=== PATIENT | female | born 1985 | race Asian ===

== ENCOUNTER → 2017-07-20 | Outpatient (CLI) | payer BC | END | disposition home or self-care (01) | LOC: C.LABSPEC 11:32 | PROVIDERS: ATTEND Obstetrics & Gynecology | DX: Z34.91 Encounter for supervision of normal pregnancy, unspecified, first trimester (principal); Z3A.00 Weeks of gestation of pregnancy not specified ==

== ENCOUNTER → 2017-07-26 | Outpatient (CLI) | payer BC ==
[2017-07-26 10:09] LABS: BASO % 0.5 %; BASO ABS # 0.03 K/uL (0-0.2); EOS ABS # 0.06 K/uL (0-0.5); HEMATOCRIT 36.3 % (37-47); HEMOGLOBIN 11.6 g/dL (12.0-16.0); IG# 0.01 K/uL (0.00-0.02); LYMPH % 18.2 %; LYMPH ABS # 1.12 K/uL (1.2-3.4); MEAN CELL VOLUME 70.1 fL (80-100); MEAN CORPUSCULAR HEMOGLOBIN 22.4 pg (25-34); MONO ABS # 0.31 K/uL (0.11-0.59); NEUT % 75.1 %; NEUT ABS # 4.62 K/uL (1.4-6.5); PLATELET COUNT 175 K/uL (130-400); RED CELL DISTRIBUTION WIDTH CV 15.6 % (11.5-14.5); RED CELL DISTRIBUTION WIDTH SD 39.5 fL (36.4-46.3); WHITE BLOOD COUNT 6.15 K/uL (4.8-10.8)
== END | disposition home or self-care (01) ==
LOC: C.LAB1850 09:23
PROVIDERS: ATTEND Obstetrics & Gynecology
DX: Z34.91 Encounter for supervision of normal pregnancy, unspecified, first trimester (principal); Z3A.00 Weeks of gestation of pregnancy not specified

== ENCOUNTER → 2017-09-06 | Outpatient (CLI) | payer BC | END | disposition home or self-care (01) | LOC: C.LAB1850 16:44 | PROVIDERS: ATTEND Obstetrics & Gynecology | DX: Z34.02 Encounter for supervision of normal first pregnancy, second trimester (principal); Z3A.00 Weeks of gestation of pregnancy not specified ==

== ENCOUNTER → 2017-09-23 | Outpatient (CLI) | payer BC | END | disposition home or self-care (01) | LOC: C.LAB1850 08:20 | PROVIDERS: ATTEND Obstetrics & Gynecology | DX: O28.1 Abnormal biochemical finding on antenatal screening of mother (principal) ==

== ENCOUNTER 2021-08-24 03:58 | Inpatient (IN) ==
[2021-08-24] MEDS ORDERED: OXYTOCIN 30 UNITS/500 ML BAG IV PRN ×2 (04:10→05:12)
[2021-08-24] MEDS ORDERED: LACTATED RINGER'S 1,000 ML IV PRN (04:10)
[2021-08-24] MEDS ORDERED: PENICILLIN G POTASSIUM 6 MU in DEXTROSE 5% 250 ML IV STA (04:10)
--- NOTE | 2021-08-24 04:16 | History & Physical Report ---
Date of Service August 24, 2021 Assessment & Plan (1) : Plan: 35 y/o at 37 5/7 wga in labor VSS Fetus cat 1 Labor - progressing spontanoeusly GBS+, will attempt antibiotics but not likely to be adequate History of Present Illness Chief Complaint: contractions Primary Care Provider: NO PCP 35 y/o at 37 5/7 wga presenting w/ contractions increasing in frequency and intensity. +FM; denies LOF, VB PNI: Prior child w/ thalaseemia, fob negative ASCUS/HPV- Past [employer] Hx: G1 eAB G2 2018 at 41 wks q29d cycles ascus/hpv- pap denies hx stis Allergies Allergy/AdvReac Type Severity Reaction Status Date / Time No Known Allergies Allergy Verified 08/18/21 16:06 Home Medications Medication Instructions Recorded Confirmed Type prenat.vits,alexandre,por-ylsv-haqun 1 tab PO DAILY 03/01/18 08/18/21 History ( Vitamin) breast pump #1 ea 08/04/21 08/18/21 Rx Patient History Surgical History (Updated 01/23/21 @ 15:23 by Camilla Kaiser) Inguinal hernia S/P dilation and curettage Social History Smoking Status: Never smoker Hx Alcohol Use: No Hx Substance Use: No Preferred Language: Armenian Communication Ability: Effective Awning Maker And Installer Required: No Beliefs That Will Affect Care: None marital status: Current Living Situation: Spouse Feels Safe at Home: Yes Assistive Devices: None Physical Exam Genitourinary: OB Exam Monitor Tracing: + external FHT monitor used, + external uterine monitor used (q3-4) and + category I (135/mod/+accel/-decel) SVE 9cm by nursing Results & Data ([facility]) Vital Signs (Past 12 Hours) Vital Signs Pulse BP 08/24/21 04:07 92 H 120/74 Laboratory Results OB Labs: Blood Type B Positive 01/28/21 Antibody Screen NEGATIVE 01/28/21 Hemoglobin 11.2 g/dL (12.0-16.0) L 06/18/21 Hematocrit 36.2 % (37-47) L 06/18/21 Mean Corpuscular Volume 70.1 fL (80-100) L 01/28/21 Platelet Count 231 K/uL (130-400) 01/28/21 Rubella IgG Antibody Immune (Immune) 01/28/21 Rapid Plasma Reagin Nonreactive (Nonreactive) 01/28/21 Hepatitis B Surface Antigen Neg (Neg) 01/28/21 HIV (1&2) Ab and P24 Ag, 4th Gener Neg (Neg) 01/28/21 Glucose 1 Hour 50 gm Load 143 mg/dl (70-130) H 06/18/21 OB Optional Labs: Chlamydia trachomatis RNA NOT DETECTED (NOT DETECTED) 01/28/21 Neisseria gonorrhoeae RNA NOT DETECTED (NOT DETECTED) 01/28/21 Labs Reviewed: cfDNA low risk--smp GBS+ Coding Level of Care Code None Diagnoses Z34.90
[2021-08-24] MEDS ORDERED: BUPIVACAINE 0.25% 30 ML VIAL ONE (04:40)
[2021-08-24] MEDS ORDERED: SODIUM CHLORIDE 0.9% INJ 10 ML VIAL ONE (04:40)
[2021-08-24] MEDS ORDERED: ePHEDrine sulfate 50 MG/ML AMP ONE (04:40)
[2021-08-24] MEDS ORDERED: fentaNYL citrate 100 MCG/2 ML VIAL ONE (04:40)
[2021-08-24] MEDS ORDERED: fentaNYL 2MCG/ML ROPIVACAINE 1.25MG/ML 100 ML BAG EPI ONE (04:41)
[2021-08-24 04:50] LABS: Mean Corpuscular Hgb Conc 32.4 g/dL (32-36)
[2021-08-24 04:58] LABS: Hematocrit (blood only) 37.6 % (37-47); Hemoglobin 12.2 g/dL (12.0-16.0); Mean Corpuscular Volume 70.8 fL (80-100); RDW Coefficient of Variation 13.9 % (11.5-14.5); RDW Standard Deviation 35.6 fL (36.4-46.3); Red Blood Count 5.31 M/uL (4.2-5.4); White Blood Count 11.15 K/uL (4.8-10.8)
[2021-08-24 05:08] LABS: Platelet Count 129 K/uL (130-400); Platelet Estimate Decreased (Normal)
[2021-08-24] MEDS ORDERED: IBUPROFEN 600 MG TAB PO PRN (05:12)
[2021-08-24] MEDS ORDERED: ACETAMINOPHEN 325 MG TAB PO PRN (05:12)
[2021-08-24] MEDS ORDERED: BENZOCAINE 20% AER SPR 82.5 GM CAN EXT PRN (05:12)
[2021-08-24] MEDS ORDERED: DIPHTHERIA/TETANUS/PERTUSSIS 0.5 ML SYR/VIAL IM ONE (05:12)
[2021-08-24] MEDS ORDERED: HYDROCORTISONE ACETATE 25 MG SUPP PR PRN (05:12)
--- NOTE | 2021-08-24 05:18 | Delivery Summary ---
Vaginal Delivery Summary Date of Service August 24, 2021 Vaginal Delivery Summary [facility] PREOPERATIVE DIAGNOSIS: 1. Single intrauterine at 37 5/7 weeks gestation 2. Labor 3. GBS+ POSTOPERATIVE DIAGNOSIS: 1. Single intrauterine at 37 5/7 weeks gestation 2. Labor 3. GBS+ 4. Delivered PROCEDURE: 1. Normal spontaneous vaginal delivery. SURGEON: Cara Johnson MD ANESTHESIA: None ESTIMATED BLOOD LOSS: 300 mL FLUIDS: Continuous LR. URINE OUTPUT: None. COMPLICATIONS: None. CONDITION: Stable. INDICATIONS: 35 y/o at 37 5/7 wga presented with contractions increasing in frequency and intensity. She called in 4-5 hours before delivery with contractions q7-10 minutes. She was able to rest but then contractions worsened and presented for evaluation when she was found to be 8cm. She was very uncomfortable and so underwent artificial rupture of membranes. She then quickly progressed to complete and desired to push. FINDINGS: A viable male infant, weight pending with Apgars of 8 and 9 at 1 and 5 minutes respectively. SPECIMEN: Cord blood OPERATIVE REPORT: The patient progressed to 10 cm, 100% effaced and +2 station, pushed over intact perineum with anesthesia to deliver a viable male , weight and Apgars as above. Head of delivered in NATA position. No nuchal cord was present. Body and shoulders were delivered without difficulty. was delivered to maternal abdomen and nursing staff. Delayed cord clamping was performed for 60 seconds. Cord was clamped and cut. Cord blood was obtained. Placenta delivered spontaneously intact with 3-vessel cord. IV oxytocin and fundal massage were given however there was still atony and bimanual massage was given for excellent hemostasis. Vagina, cervix, perineum, and placenta were inspected. A hemostatic L vaginal abrasion was noted at the introitus but not needed to be repaired. Sponge and needle counts correct x2. No sponges were left behind. Mother and stable in immediate period. [facility] Vaginal Delivery Charge Vaginal Delivery Codes: 68144 global code for the antepartum, delivery, and post- Delivery Type Details: [facility]
[2021-08-24] MEDS ORDERED: PENICILLIN G POTASSIUM 3 MU in DEXTROSE 5% 100 ML IV PRN (07:10)
[2021-08-24] MEDS: DOCUSATE SODIUM 100 MG CAP PO SCH ×2 (08:19→20:30)
[2021-08-24] MEDS: PRENATAL VITAMIN 1 TAB PO SCH (08:19)
--- NOTE | 2021-08-25 06:34 | Obstetrical Progress Note ---
Date of Service August 25, 2021 Assessment & Plan (1) Encounter for care and examination after delivery: Plan: 35 yo PPD1 s/p at 37 5/7 weeks. -Continue routine care -Vitals reviewed- HDS, afebrile -B+ blood, GBS+& treated, Rubella immune -Encourage ambulation, regular diet -Pain control with ibuprofen, acetaminophen PRN -Encourage -D/c today with F/u in 6 weeks withOB Admission and Anticipated Discharge Date Admission Date: August 24, 2021 Supervising Physician Co-Signing Physician Notes Resident Physician Supervision Note: I was present with [Name of resident] during the history and exam. I discussed the case with the resident and agree with the findings and plan as documented in the note. Any exceptions or clarifications are listed here: [None] Documented By: Sam Garcia MD, FACOG Subjective 35 yo PPD1 s/p at 37 5/7 weeks. Pt doing well. Has some pain today that improves with tylenol and ibuprofen. Ambulating around the room and voiding without issue. Pt is eating and drinking w/o n/v. Baby is and latching, but mother has concern for tongue tie that she would like to discuss with medical researcher. Pt feels comfortable with being D/c'd today. Discussed routine care and what to expect in next few weeks. Otherwise pt has no other complaints at this time. Review of Systems Review of Systems: All systems reviewed & are unremarkable except as noted in HPI & below Physical Exam Physical Exam: General: Alert, oriented, no acute distress Cardiac: Regular rate and rhythm, normal S1, S2. No murmurs appreciated. Respiratory: Clear to auscultation b/l with good air flow entry, symmetric chest rise and fall. No wheezes or crackles. No increased work of breathing or accessory muscle use Abdomen: Soft, nontender, nondistended. Fundus firm and palpable at 2 cm below umbilicus. No guarding or rebound. Skin: No rashes or lesions Extremities: Warm, dry, well-perfused with capillary refill <2s b/l. No lower extremity edema, erythema or swelling. Negative Stewart's sign b/l. Results & Data ([facility]) Vital Signs (Past 12 Hours) Vital Signs Temp Pulse Resp BP Pulse Ox 08/25/21 04:14 36.8 C 84 20 104/60 08/25/21 01:18 36.3 C L 90 20 108/66 99 08/24/21 20:00 36.8 C 94 H 18 106/64 98
[2021-08-25 07:03] LABS: Hemoglobin 9.3 g/dL (12.0-16.0); Mean Corpuscular Hemoglobin 22.6 pg (25-34); Mean Corpuscular Hgb Conc 32.1 g/dL (32-36); Mean Corpuscular Volume 70.4 fL (80-100); Mean Platelet Volume 12.3 fL (7.4-10.4); Platelet Count 121 K/uL (130-400); Platelet Estimate Decreased (Normal); RDW Coefficient of Variation 14.2 % (11.5-14.5); RDW Standard Deviation 36.2 fL (36.4-46.3); Red Blood Count 4.12 M/uL (4.2-5.4); White Blood Count 9.77 K/uL (4.8-10.8)
[2021-08-25] MEDS: DOCUSATE SODIUM 100 MG CAP PO SCH (08:33)
[2021-08-25] MEDS: PRENATAL VITAMIN 1 TAB PO SCH (08:33)
[2021-08-25] MEDS ORDERED: bisacodyL 5 MG TABEC PO SCH (20:00)
[2021-08-26] MEDS ORDERED: bisacodyL 10 MG SUPP PR PRN
== END 2021-08-25 11:17 | disposition home or self-care (01) | DRG 807 ==
LOC: OPB 03:58 → 4S1 04:00 → 4E2 08:28